=== PATIENT | female | born 1975 | race Caucasian/White ===

== ENCOUNTER 2017-08-28 00:39 | Emergency (ER) | payer OTHER ==
[2017-08-28] MEDS ORDERED: ASPIRIN 81 MG CHEWABLE TABLET ONE (00:56)
[2017-08-28] MEDS ORDERED: FENTANYL CITR 100 MCG/2 ML ONE (00:57)
[2017-08-28] MEDS ORDERED: PANTOPRAZOLE 40 MG INJ ONE (00:58)
[2017-08-28 01:12] LABS: Absolute Lymphocytes (CBC) 2.5 K/uL (0.7-4.9); Absolute Monocytes 0.5 K/uL (0.1-1.3); Absolute Neutrophil 3.3 K/uL (1.8-8.0); Basophils % 0.8 % (0-1.3); Eosinophils % 2.5 % (0-4.4); Hematocrit 34.3 % (36.0-45.0); Lymphocytes % 38.5 % (15.3-44.8); MCH 29.9 pg (27.0-35.0); MCV 90.5 fL (80-100); MPV 7.2 fL (7.6-11.3); Monocytes % 7.6 % (3.3-12.3); RBC Red Blood Cell Count 3.79 M/uL (3.86-4.86)
[2017-08-28 01:17] LABS: Protime INR 0.99
[2017-08-28 01:24] LABS: Bicarbonate 28 mEq/L (21-31); Glucose Level 118 mg/dL (65-120); Potassium 3.5 mEq/L (3.6-5.0); Sodium Level 136 mEq/L (135-145)
[2017-08-28 01:30] LABS: ALT/SGPT 11 IU/L (10-60); AST/SGOT 16 IU/L (10-42); Albumin 3.8 g/dL (3.2-5.5); Alkaline Phosphatase 49 IU/L (42-121); BUN Blood Urea Nitrogen 13 mg/dL (6-20); Bilirubin Direct < 0.1 mg/dL (0-0.2); Bilirubin Total 0.4 mg/dL (0.3-1.2); Creatine Phosphokinase 118 IU/L (22-269); Magnesium 1.8 mg/dL (1.8-2.5); Protein, Total 7.4 g/dL (6.0-8.3)
[2017-08-28 01:33] LABS: CKMB Creatine Kinase MB 1.4 ng/ml (0.3-4.0)
[2017-08-28] MEDS ORDERED: LIDOCAINE VISCOUS 2% SOLN 15 ML UDC ONE (02:50)
[2017-08-28] MEDS ORDERED: MAGNE/ALUM HYDROXD 30 ML UCUP ONE (02:50)
[2017-08-28] MEDS ORDERED: KETOROLAC 30 MG/ML INJ ONE (02:51)
--- NOTE | 2017-08-28 04:31 | EDPHYS ---
Physician Documentation [facility] Name: Ama Stoddard Age: 42 yrs Sex: Female : 1975 Arrival Date: 08/28/2017 Time: 00:42 Bed 6 Private MD: Pradeep Bridges H ED Physician Florencio Low HPI: 08/28 00:45 This 42 yrs old Female presents to ER via Ambulatory with complaints of Chest snw Pain. 02:51 The patient or guardian reports chest pain that is located primarily in the anterior snw chest wall, left. Onset: suddenly, last night, 1800. The pain radiates to left back. Associated signs and symptoms: The patient has no apparent associated signs or symptoms. The chest pain is described as sharp, squeezing. Duration: The patient or guardian reports a single episode, that is still ongoing. Modifying factors: The symptoms are alleviated by nothing. Severity of pain: At its worst the pain was moderate. The patient has not experienced similar symptoms in the past. Historical: - Allergies: 00:52 No Known Allergies; fc - Home Meds: 00:52 omeprazole 40 mg Oral cpDR 1 cap once daily [Active]; fc - PMHx: 00:52 GERD; fc - PSHx: 00:52 Tubal ligation; Cholecystectomy; fc - Immunization history:: Last tetanus immunization: up to date. - Social history:: Smoking status: Patient/guardian denies using tobacco. ROS: 02:51 Constitutional: Negative for fever, chills, and weight loss, Eyes: Negative for injury, snw pain, redness, and discharge, ENT: Negative for injury, pain, and discharge, Neck: Negative for injury, pain, and swelling, Respiratory: Negative for shortness of breath, cough, wheezing, and pleuritic chest pain, Abdomen/GI: Negative for abdominal pain, nausea, vomiting, diarrhea, and constipation, Back: Negative for injury and pain, : Negative for injury, bleeding, discharge, and swelling, MS/Extremity: Negative for injury and deformity, Skin: Negative for injury, rash, and discoloration, Neuro: Negative for headache, weakness, numbness, tingling, and seizure. 02:51 Cardiovascular: Positive for chest pain, of the anterior aspect of left upper chest and left breast. Exam: 02:51 Constitutional: This is a well developed, well nourished patient who is awake, alert, snw and in no acute distress. Head/Face: Normocephalic, atraumatic. Eyes: Pupils equal round and reactive to light, extra-ocular motions intact. Lids and lashes normal. Conjunctiva and sclera are non-icteric and not injected. Cornea within normal limits. Periorbital areas with no swelling, redness, or edema. ENT: Nares patent. No nasal discharge, no septal abnormalities noted. Tympanic membranes are normal and external auditory canals are clear. Oropharynx with no redness, swelling, or masses, exudates, or evidence of obstruction, uvula midline. Mucous membranes moist. Neck: Trachea midline, no thyromegaly or masses palpated, and no cervical lymphadenopathy. Supple, full range of motion without nuchal rigidity, or vertebral point tenderness. No Meningismus. Chest/axilla: Normal chest wall appearance and motion. Nontender with no deformity. No lesions are appreciated. Cardiovascular: Regular rate and rhythm with a normal S1 and S2. No gallops, murmurs, or rubs. Normal PMI, no JVD. No pulse deficits. Respiratory: Lungs have equal breath sounds bilaterally, clear to auscultation and percussion. No rales, rhonchi or wheezes noted. No increased work of breathing, no retractions or nasal flaring. Abdomen/GI: Soft, non-tender, with normal bowel sounds. No distension or tympany. No guarding or rebound. No evidence of tenderness throughout. Back: No spinal tenderness. No costovertebral tenderness. Full range of motion. Skin: Warm, dry with normal turgor. Normal color with no rashes, no lesions, and no evidence of cellulitis. MS/ Extremity: Pulses equal, no cyanosis. Neurovascular intact. Full, normal range of motion. Neuro: Awake and alert, GCS 15, oriented to person, place, time, and situation. Cranial nerves II-XII grossly intact. Motor strength 5/5 in all extremities. Sensory grossly intact. Cerebellar exam normal. Normal gait. Vital Signs: 00:40 BP 124 / 90; Pulse 96; Resp 18; Temp 97.5(O); Pulse Ox 99% on R/A; Weight 86.18 kg (R); fc Height 5 ft. 8 in. (172.72 cm) (R); Pain 6/10; 01:30 BP 112 / 89; Pulse 70; Resp 18; Pulse Ox 98% on R/A; ea 02:00 BP 110 / 79; Pulse 66; Resp 18; Pulse Ox 100% on R/A; ea 02:50 BP 112 / 73; Pulse 77; Resp 18; Pulse Ox 98% ; mg2 04:05 BP 122 / 74; Pulse 71; Resp 18; Pulse Ox 100% ; mg2 04:46 BP 110 / 79; Pulse 65; Resp 18; Pulse Ox 100% on R/A; lp1 00:40 Body Mass Index 28.89 (86.18 kg, 172.72 cm) fc MDM: 00:50 Patient medically screened. snw 03:17 The patient was given aspirin in the Emergency Department. JOSH Risk Score: 1 - Recent snw [<24hrs] Severe Angina. Data reviewed: vital signs, nurses notes. Data interpreted: Pulse oximetry: on room air is 98 %. Interpretation: normal. Counseling: I had a detailed discussion with the patient and/or guardian regarding: the historical points, exam findings, and any diagnostic results supporting the discharge/admit diagnosis, lab results, radiology results. 08/28 00:51 Order name: Basic Metabolic Panel; Complete Time: :33 08/28 00:51 Order name: BNP; Complete Time: :33 08/28 00:51 Order name: CBC with Diff; Complete Time: 01:21 08/28 00:51 Order name: Ckmb; Complete Time: 01:33 08/28 00:51 Order name: CPK; Complete Time: 01:33 08/28 00:51 Order name: LFT's; Complete Time: 01:33 08/28 00:51 Order name: Magnesium; Complete Time: 01:33 08/28 00:51 Order name: PT-INR; Complete Time: 01:w 08/28 00:51 Order name: Ptt, Activated; Complete Time: 01:21 08/28 00:51 Order name: Troponin (emerg Dept Use Only); Complete Time: 01:32 w 08/28 00:51 Order name: XRAY Chest (1 view) snw 08/28 00:58 Order name: CT Chest For PE Angio 08/28 03:16 Order name: Troponin (emerg Dept Use Only); Complete Time: 04:04 08/28 00:51 Order name: EKG; Complete Time: 00:52 08/28 00:51 Order name: Cardiac monitoring; Complete Time: 01:09 08/28 00:51 Order name: EKG - Nurse/Tech; Complete Time: 01:09 08/28 00:51 Order name: IV Saline Lock; Complete Time: 01:09 08/28 00:51 Order name: Labs collected and sent; Complete Time: 01:09 08/28 00:51 Order name: O2 Per Protocol; Complete Time: 01:09 08/28 00:51 Order name: O2 Sat Monitoring; Complete Time: 01:09 08/28 03:42 Order name: EKG; Complete Time: 03:42 08/28 03:42 Order name: EKG - Nurse/Tech; Complete Time: 03:59 snw Administered Medications: 01:04 Drug: ProTONIX 40 mg Route: IVP; Site: right antecubital; mg2 01:30 Follow up: Response: No adverse reaction ea 01:04 Drug: Aspirin Chewable Tablet 324 mg Route: PO; mg2 01:30 Follow up: Response: No adverse reaction ea 01:04 Drug: fentaNYL (PF) 25 mcg Route: IVP; Site: right antecubital; mg2 01:30 Follow up: Response: No adverse reaction; Pain is decreased ea 02:55 Drug: TORadol 30 mg Route: IVP; Site: right antecubital; ea 03:59 Follow up: Response: No adverse reaction; Pain is decreased mg2 02:55 Drug: GI Cocktail without - (Maalox Suspension 30 ml, Lidocaine Liquid 2 % 15 ea ml) Route: PO; 03:59 Follow up: Response: No adverse reaction mg2 Disposition: 08/28/17 04:30 Discharged to Home. Impression: Chest pain, unspecified. - Condition is Stable. - Discharge Instructions: Nonspecific Chest Pain, Aspirin and Your Heart. - Prescriptions for Tylenol- Codeine #3 300-30 mg Oral Tablet - take 2 tablets by ORAL route every 6 hours As needed; 16 tablet. orphenadrine citrate 100 mg Oral Tablet Sustained Release - take 1 tablet by ORAL route 2 times per day As needed; 20 tablet. - Work release form, Medication Reconciliation Form, Thank You Letter, Antibiotic Education, Prescription Opioid Use form. - Follow up: Pradeep Bridges; When: Tomorrow; Reason: Recheck today's complaints, Continuance of care, Re-evaluation by your physician. Follow up: Emergency Department; When: As needed; Reason: Worsening of condition. Addendum: 09/14/2017 07:03 Co-signature as Attending Physician, Florencio Low MD I agree with the assessment and t w4 plan of care. Signatures: Dispatcher [employer] EDMS Tonia Lomas, SHIMA-C REHABILITATION CASEWORKER-Csnw Sherine Ramsey, RN RN Nichole Lucio RN RN lp1 Sydni Carrasco RN RN Florencio Dang MD MD tw4 Reyes Palmer RN JOHN mg2 Corrections: (The following items were deleted from the chart) 08/28 02:50 02:49 Onset: The symptoms/episode began/occurred snw snw 02:50 02:49 This 42 yrs old Female presents to ER via Ambulatory with complaints of snw Chest Pain. snw 04:48 04:30 08/28/2017 04:30 Discharged to Home. Impression: Chest pain, unspecified. lp1 Condition is Stable. Discharge Instructions: Nonspecific Chest Pain, Aspirin and Your Heart. Prescriptions for Tylenol-Codeine #3 300-30 mg Oral Tablet - take 2 tablets by ORAL route every 6 hours As needed; 16 tablet, orphenadrine citrate 100 mg Oral Tablet Sustained Release - take 1 tablet by ORAL route 2 times per day As needed; 20 tablet. and Forms are Medication Reconciliation Form, Thank You Letter, Antibiotic Education, Prescription Opioid Use. Follow up: Pradeep Bridges; When: Tomorrow; Reason: Recheck today's complaints, Continuance of care, Re-evaluation by your physician. Follow up: Emergency Department; When: As needed; Reason: Worsening of condition. snw
--- NOTE | 2017-08-28 04:31 | ER ---
Nurse's Notes [facility] Name: Ama Stoddard Age: 42 yrs Sex: Female : 1975 Arrival Date: 08/28/2017 Time: 00:42 Bed 6 Private MD: Pradeep Bridges H Diagnosis: Chest pain, unspecified Presentation: 08/28 00:40 Presenting complaint: Patient states: that at 1800 she started to have chest pain that fc radiates to her back and jaw. Also having nausea and shortness of breath. Transition of care: patient was not received from another setting of care. Onset of symptoms was August 27, 2017 at 18:00. Initial Sepsis Screen: Does the patient meet any 2 criteria? HR > 90 bpm. Yes Does the patient have a suspected source of infection? No. Patient's initial sepsis screen is negative. Care prior to arrival: Medication(s) given: Tums and Maalox. 00:40 Method Of Arrival: Ambulatory fc 00:40 Acuity: SOFIYA 3 fc Triage Assessment: 01:01 General: Appears uncomfortable, Behavior is calm, cooperative, appropriate for age. ea Pain: Complains of pain in mid-sternal area. EENT: No signs and/or symptoms were reported regarding the EENT system. Neuro: Level of Consciousness is awake, alert, obeys commands, Oriented to person, place, time, situation. Cardiovascular: Heart tones S1 S2 present Patient's skin is warm and dry. Respiratory: Airway is patent Respiratory effort is even, unlabored, Respiratory pattern is regular, symmetrical, Breath sounds are clear bilaterally. GI: Abdomen is non-distended, Bowel sounds present X 4 quads. : No signs and/or symptoms were reported regarding the genitourinary system. Derm: Skin is pink, warm \T\ dry. Historical: - Allergies: 00:52 No Known Allergies; fc - Home Meds: 00:52 omeprazole 40 mg Oral cpDR 1 cap once daily [Active]; fc - PMHx: 00:52 GERD; fc - PSHx: 00:52 Tubal ligation; Cholecystectomy; fc - Immunization history:: Last tetanus immunization: up to date. - Social history:: Smoking status: Patient/guardian denies using tobacco. Screenin:40 Abuse screen: Denies threats or abuse. Nutritional screening: No deficits noted. fc Tuberculosis screening: No symptoms or risk factors identified. Fall Risk None identified. Assessment: 01:05 Reassessment: see triage assessment. ea 02:16 Reassessment: Patient and/or family updated on plan of care and expected duration. Pain ea level reassessed. Patient is alert, oriented x 3, equal unlabored respirations, skin warm/dry/pink. 02:57 Reassessment: Patient and/or family updated on plan of care and expected duration. Pain ea level reassessed. 03:01 Reassessment: Patient and/or family updated on plan of care and expected duration. Pain ea level reassessed. Patient is alert, oriented x 3, equal unlabored respirations, skin warm/dry/pink. 04:40 Reassessment: Patient and/or family updated on plan of care and expected duration. Pain lp1 level reassessed. Patient is alert, oriented x 3, equal unlabored respirations, skin warm/dry/pink. Discharge instructions give to patient, verbalized understanding of instruction. Patient states feeling better. Patient states symptoms have improved. Vital Signs: 00:40 BP 124 / 90; Pulse 96; Resp 18; Temp 97.5(O); Pulse Ox 99% on R/A; Weight 86.18 kg (R); fc Height 5 ft. 8 in. (172.72 cm) (R); Pain 6/10; 01:30 BP 112 / 89; Pulse 70; Resp 18; Pulse Ox 98% on R/A; ea 02:00 BP 110 / 79; Pulse 66; Resp 18; Pulse Ox 100% on R/A; ea 02:50 BP 112 / 73; Pulse 77; Resp 18; Pulse Ox 98% ; mg2 04:05 BP 122 / 74; Pulse 71; Resp 18; Pulse Ox 100% ; mg2 04:46 BP 110 / 79; Pulse 65; Resp 18; Pulse Ox 100% on R/A; lp1 00:40 Body Mass Index 28.89 (86.18 kg, 172.72 cm) ED Course: 00:40 Arm band placed on Patient placed in an exam room, on a stretcher, on cardiac technologist, fc on pulse oximetry. 00:40 Patient has correct armband on for positive identification. Placed in gown. Bed in low fc position. Call light in reach. upper doubler on. Pulse ox on. NIBP on. 00:40 No provider procedures requiring assistance completed. fc 00:42 Patient arrived in ED. es 00:42 Pradeep Bridges DO is Private Physician. es 00:50 Triage completed. fc 00:50 Tonia Lomas FNP-C [facility]. snw 00:50 Florencio Low MD is Attending Physician. snw 00:58 Sydni Carrasco RN is Primary Nurse. ea 01:03 Inserted saline lock: 20 gauge in right antecubital area, using aseptic technique. ea Blood collected. Patient maintains SpO2 saturation greater than 95% on room air. 01:09 X-ray completed. Portable x-ray completed in exam room. Patient tolerated procedure kw well. 01:10 XRAY Chest (1 view) In Process Unspecified. EDMS 02:08 CT Chest For PE Angio In Process Unspecified. EDMS 04:30 Pradeep Bridges DO is Referral Physician. snw 04:40 IV discontinued, intact, bleeding controlled, No redness/swelling at site. Pressure lp1 dressing applied. Administered Medications: 01:04 Drug: ProTONIX 40 mg Route: IVP; Site: right antecubital; mg2 01:30 Follow up: Response: No adverse reaction ea 01:04 Drug: Aspirin Chewable Tablet 324 mg Route: PO; mg2 01:30 Follow up: Response: No adverse reaction ea 01:04 Drug: fentaNYL (PF) 25 mcg Route: IVP; Site: right antecubital; mg2 01:30 Follow up: Response: No adverse reaction; Pain is decreased ea 02:55 Drug: TORadol 30 mg Route: IVP; Site: right antecubital; ea 03:59 Follow up: Response: No adverse reaction; Pain is decreased mg2 02:55 Drug: GI Cocktail without - (Maalox Suspension 30 ml, Lidocaine Liquid 2 % 15 ea ml) Route: PO; 03:59 Follow up: Response: No adverse reaction mg2 Outcome: 04:30 Discharge ordered by . snw 04:43 Discharged to home ambulatory. lp1 04:43 Condition: improved 04:43 Discharge instructions given to patient, Instructed on discharge instructions, follow up and referral plans. medication usage, Demonstrated understanding of instructions, follow-up care, medications, Prescriptions given X 2. 04:48 Patient left the ED. lp1 Signatures: Dispatcher [employer] EDTonia Astudillo, FUNERAL DRIVER-C FUNERAL DRIVER-Csnw Yomaira Woo Felicia, RN RN Julisa Alex Laura, RN RN lp1 Sydin Carrasco RN RN Reyes Erazo RN RN mg2
[2017-08-28 04:52] VITALS: TEMP 97.5
[2017-08-28 04:57] VITALS: O2SAT 100
[2017-08-28 04:58] VITALS: BP 110/79
--- NOTE | 2017-08-28 07:46 | RAD REPORT ---
EXAM DESCRIPTION: RAD - Chest Single View - 08/28/2017 1:10 am CLINICAL HISTORY: Chest pain radiating to the back COMPARISON: None. TECHNIQUE: AP portable chest image was obtained 0104 hours . FINDINGS: Lungs are clear. Heart and vasculature are normal. No measurable pleural effusion and no p neumothorax. No gross bony abnormality seen. No acute aortic findings suspected. IMPRESSION: No acute cardiopulmonary process.
--- NOTE | 2017-08-28 08:37 | RAD REPORT ---
EXAM DESCRIPTION: CT - Chest For Pe Angio - 08/28/2017 3:38 am CLINICAL HISTORY: Chest pain radiating to the back A preliminary written report was provided at the time of the study, and the report was reviewed prio r to final dictation. COMPARISON: Chest exam same date TECHNIQUE: Dynamically enhanced 3 mm thick images of the chest were obtained during administration o f approximately 150mL Isovue 370 IV contrast. Coronal and oblique reconstruction images were generate d and reviewed. Exam utilizes a protocol to evaluate the pulmonary arterial tree. All CT scans are performed using dose optimization technique as appropriate and may include automated exposure control or mA/KV adjustment according to patient size. FINDINGS: No pulmonary emboli are identified. Exam is limited somewhat in the far peripheral branche s of each lung base due to motion. Likelihood of embolic disease in this region is felt to be low. The aorta as imaged shows no acute or suspicious finding. No pericardial thickening or effusion. No infiltrate or mass in the lung parenchyma. No pleural effusion or pleural thickening. No mediastinal or hilar suspicious masses. No chest wall masses or abnormal axillary lymphadenopathy. Bilateral breast implants are in place. IMPRESSION: No pulmonary emboli identified. No other significant or suspicious findings.
--- NOTE | 2017-08-28 08:44 | EKG ---
Test Date: 2017-08-28 Test Time: 03:53:52 Lead Athlete: TONY MEASUREMENT RESULTS: Intervals: Rate: 64 ND: 178 QRSD: 82 QT: 410 QTc: 422 [place]: P: 34 ND: 178 QRS: 49 T: 24 INTERPRETIVE STATEMENTS: Normal sinus rhythm Cannot rule out Anterior infarct, age undetermined Abnormal ECG Compared to ECG 08/28/2017 00:49:59 No significant changes Electronically Signed On 08-28-17 08:43:36 CDT by Curry Reilly
--- NOTE | 2017-08-28 08:45 | EKG ---
Test Date: 2017-08-28 Test Time: 00:49:59 Traffic Chief: LITZY MEASUREMENT RESULTS: Intervals: Rate: 74 MA: 168 QRSD: 82 QT: 386 QTc: 428 [place]: P: 40 MA: 168 QRS: 28 T: 35 INTERPRETIVE STATEMENTS: Normal sinus rhythm Cannot rule out Anterior infarct, age undetermined Abnormal ECG No previous ECG available for comparison Electronically Signed On 08-28-17 08:43:41 CDT by Curry Reilly
== END 2017-08-28 04:48 | disposition home or self-care (01) ==
LOC: ER 00:39
DX: R07.9 Chest pain, unspecified (principal); K21.9 Gastro-esophageal reflux disease without esophagitis
CPT/HCPCS: 36415; 71045; 71275; 80048; 80076; 82550; 82553; 83735; 83880; 84484; 85025; 85610; 85730; 93005; 96374; 96375; 99285; C9113; J3010; Q9967

== ENCOUNTER 2019-04-01 09:15 | Day surgery (SDC) | payer OTHER ==
[2019-03-27 15:53] LABS: Absolute Lymphocytes (CBC) 2.8 K/uL (0.7-4.9); Basophils % 0.8 % (0-1.3); Hematocrit 33.2 % (36.0-45.0); Lymphocytes % 43.6 % (15.3-44.8); MPV 7.1 fL (7.6-11.3); RBC Red Blood Cell Count 3.75 M/uL (3.86-4.86)
[2019-03-27 16:12] LABS: Urine Appearance CLEAR; Urine Bilirubin NEGATIVE (NEG); Urine Blood NEGATIVE (NEG); Urine Color YELLOW; Urine Glucose NEGATIVE (NEG); Urine Protein NEGATIVE (NEG); Urine Specific Gravity 1.015 (1.005-1.030); Urine Urobilinogen 0.2 mg/dL (0.2-1.0); Urine pH 5.5 (5.0-7.0)
[2019-03-27 16:18] LABS: Urine Microscopic Reflex NO UMIC
[2019-04-01 09:38] LABS: Specific Gravity 1.025 (1.005-1.030)
[2019-04-01] MEDS ORDERED: VASOPRESSIN 20 UNIT/ML VIAL ONE (09:55)
[2019-04-01] MEDS ORDERED: NA CHLORIDE 0.9% 50 ML ONE (09:55)
[2019-04-01] MEDS ORDERED: NS 0.9% VIAL 10 ML ONE (09:55)
[2019-04-01] MEDS ORDERED: CEFAZOLIN SODIUM 1 GM/VIAL ONE (09:56)
[2019-04-01] MEDS ORDERED: CEFAZOLIN/SWI 2gm 2 GM/20 ML SYR ONE (09:57)
[2019-04-01] MEDS ORDERED: CEFAZOLIN/SWI 1gm 1 GM/10 ML SYR ONE (09:57)
[2019-04-01] MEDS ORDERED: Ringers Lactate 1,000 ML IV ONE ×2 (09:57→13:59)
[2019-04-01] MEDS ORDERED: LIDOCAINE 2% MPF 5 ML VIAL ONE (10:00)
[2019-04-01] MEDS ORDERED: FENTANYL CITR 250 MCG/5 ML ONE (10:00)
[2019-04-01] MEDS ORDERED: MIDAZOLAM HCL 2 MG/2 ML INJ ONE (10:00)
[2019-04-01] MEDS ORDERED: propofoL 200 MG/20 ML VIAL IV ONE (10:00)
[2019-04-01] MEDS ORDERED: ROCURONIUM 50 MG/5 ML VIAL IV ONE (10:01)
[2019-04-01] MEDS ORDERED: ONDANSETRON 4 MG/2 ML VIAL ONE ×3 (10:01→13:59)
[2019-04-01] MEDS: HYDROMORPHONE HCL 1 MG/ML INJ ONE ×2 (12:02→12:10)
[2019-04-01] MEDS ORDERED: HYDROCODONE/APAP 5/325 MG TAB ONE ×2 (12:47→13:11)
[2019-04-01] MEDS ORDERED: HYDROCODONE/APAP 5/325 MG TAB PO ONE ×2 (12:48→13:00)
[2019-04-01 12:53] VITALS: TEMP 96.7; O2SAT 99
[2019-04-01] MEDS ORDERED: ONDANSETRON 4 MG/2 ML VIAL IV ONE (14:05)
[2019-04-01] MEDS ORDERED: SCOPOLAMINE HYDROBROMIDE PATCH TD ONE ×2 (14:33→14:40)
[2019-04-01 15:16] VITALS: BP 128/72
--- NOTE | 2019-04-01 21:52 | OP ---
Date of Procedure: 04/01/2019 Surgeon: Juanis Baer MD Preoperative Diagnoses: Stress urinary incontinence and uterovaginal prolapse. Postoperative Diagnoses: Stress urinary incontinence, uterovaginal prolapse, and urethrocele. Procedures Performed: Mid urethral sling (TVT-O), cystoscopy, and urethrocele repair. Anesthesia: General. Specimens: No specimens. Complications: No complications. Drains: Carrillo catheter. Findings: Patient's POP-Q 0, +1, -3, 5, moderate, 8, -2, -2, -3. Indications: Patient is a 43-year-old with severe stress urinary incontinence. She was complaining of no results with Kegel exercises. Discussed that she had positive urethral hypermobility and posit babs cough stress test. Given her prolapse as well, discussed about doing an apical suspension of the vagina followed by the sling procedure. Discussed about hysterectomy, salpingectomy, uterosacral li gament suspension with mid urethral sling. Also discussed about the options of physical therapy, obs ervation. Benefits and risks of all the procedures were reviewed. Patient was symptomatic mostly fr om her stress urinary incontinence and wanted her stress urinary incontinence alone repaired at this time. So, discussed about the risks of bleeding, infection, injury to the ureters and bladder, recur rent bladder infections, urinary retention, need for intermittent self catheterization, groin pain, n eed for sling division as the sling was too tight. All these were reviewed with the patient. She wa s consented. She was brought to the OR. Description Of Operation: 3 g of Ancef was given per her weight in ACOG guidelines. Placed in a sup ine fashion. General anesthesia given, placed in a dorsal lithotomy position using Wander stirrups. Vulva, vagina, and perineum were prepped and draped in a sterile fashion. Carrillo was placed to drain the bladder and retracted superiorly. Then, mid urethral area was picked up with the help of Allis c lamps. Then, dilute vasopressin 20 units mixed with 20 cc of normal saline, 15 cc was injected in th e mid urethral area on the sides. A 15 blade was used to make a 1 cm incision in the mid urethral ar ea. Slightly more towards the proximal, then the distal ends, subepithelial tissues were entered. T here was no connective tissue here. Also appeared to have a urethrocele while doing the dissection. The dissection was done such that the urethra and the bladder were away from the vaginal e pithelium at a 45-degree angle to the horizontal and vertical planes towards the ipsilateral shoulder hugging the inferior pubic ramus. An opening was made to enter the obturator space. Once the obtur ator membrane was perforated, this track was opened up. No perforation through the lateral wall. Si milar dissection performed on the left side as well as this is an easier dissection on the left than on the right. Once this was performed, then I realized that there was no connective tissue fascia or remnants of the endopelvic fascia here in the suburethral area. The pocket that I made definitely w ould allow the sling to migrate towards the proximal part of the urethra and UVJ. So, it was imperat babs that I brought the connective tissue that was present more proximally towards the distal part in a transverse fashion in order for me to recreate a pocket where the sling could be lodged and could b e left in place without sliding. So, decision was to put the sling in first and then create the pock et after properly positioning the sling under the urethra. So, the TVT-O was opened up, wing guides were placed first on the left side. Ayo was passed into the obturator space. Then, the wing guide removed and passed through 2 cm lateral to the groin fold and a centimeter above the level of the ho rizontal line dropped at the level of the external urethral meatus. The spike was retrieved here. T he skin incision about 3 mm was made with a scalpel. Plastic dilator was pulled out, cut out. Plast ic sheath was held with a Meghna and a similar pass taken on the opposite side. Once both sides were held with Kellys using Metzenbaum scissors, I position the sling underneath the mid urethra and the p lastic sheaths were pulled out. Once this was left in place, I felt that the sling had slit down as anticipated. So, Allis clamps were placed in the proximal part of the incision and the sling was mov ed distally towards the mid urethral area. Once it was positioned in the place that I wanted to stay , then a pocket was created on the left, then on the right side with interrupted 3-0 Vicryl sutures c onnecting the detached connective tissue from the proximal to distal ends, 2 sutures on each side, 3- 0 Vicryl was placed. Then, once the pocket was created, then the vaginal epithelium was closed with interrupted sutures on the top and the bottom to close the incisions so that when the center was clos ed, it would stay in place right on top of the mid urethral area. This was closed in a continuous ru nning locked fashion. Once this was done, a slight amount of vaginal epithelium was trimmed for me t o pull this back. Once urethrocele was repaired, then her point AA was -1 and her point BA was also at -1. The Carrillo was removed, cystoscopy was performed with 30-degree lens normal saline and no evid ence of any foreign body in the bladder. Scope was removed. Bladder was drained. Carrillo was replace d. Instrument, needle, and sponge counts were done and were correct at the end of the case. Both in cisions in the groins were closed with Dermabond. Instrument, needle, and sponge counts were done an d recovered the patient in the OR from anesthesia and took her to the PACU in stable condition. Plan is to conduct voiding trials for this patient 2 hours postop and then we can let her be discharg ed home today without a catheter if she passed her voiding trial. [place] was given, instructions for postop problems have been handed to the patient and reviewed with the patient preop. She has a 1 wee k follow up with me. ELIZABETH/JASMEET Voice ID: [id number] Report ID: [id number]
== END 2019-04-01 14:50 | disposition home or self-care (01) ==
LOC: OR 09:15
PROVIDERS: ATTEND Obstetrics & Gynecology
PROC: 0TSD0ZZ Reposition Urethra, Open Approach (ICD-10-PCS; principal; 2019-04-01 10:30)
PROC: 0JQC0ZZ Repair Pelvic Region Subcutaneous Tissue and Fascia, Open Approach (ICD-10-PCS; 2019-04-01 10:30)
DX: N39.3 Stress incontinence (female) (male) (principal); N81.4 Uterovaginal prolapse, unspecified; N81.0 Urethrocele; K59.00 Constipation, unspecified; D50.0 Iron deficiency anemia secondary to blood loss (chronic)
CPT/HCPCS: 85025; 36415; 86900; 86850; 81025; 86901; 81003; 57288; 57230; J2704; J2250; J3010; J1170; J0690 ×3; J7120 ×2; J2405 ×4

== ENCOUNTER 2019-04-25 22:51 | Emergency (ER) | payer OTHER ==
[2019-04-25] MEDS ORDERED: HYDROCODONE/CHLORPHEN 5 ML/OSYR ONE (23:26)
--- NOTE | 2019-04-26 00:11 | EDPHYS ---
Physician Documentation [facility] Name: Ama Stoddard Age: 43 yrs Sex: Female : 1975 Arrival Date: 04/25/2019 Time: 22:56 Bed 24 Private MD: ED Physician Donald Crowder HPI: 04/25 23:16 This 43 yrs old Female presents to ER via Ambulatory with complaints of Cough.pm1 23:16 The patient or guardian reports cough. pm1 23:16 Onset: The symptoms/episode began/occurred 3 week(s) ago. Severity of symptoms: in the pm1 emergency department the symptoms are actually worse. Modifying factors: The symptoms are alleviated by nothing, the symptoms are aggravated by nothing. Associated signs and symptoms: Pertinent positives: sore throat, sinus pain and pressure with post nasal drainage, Pertinent negatives: chest pain, ear ache, fever, shortness of breath. The patient has been recently seen by a physician: with different complaint(s), had bladder suspension surgery 3 weeks ago and after surgery had a scratchy throat that lead to a cough. Has had sinus pain and pressure with post nasal drainage. She has been taking over the counter antihistamines without improvement and took two doses of left over amoxicillin. She is concerned that he coughing will cause issues with her recent surgery. 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 - Social history:: Smoking status: Patient/guardian denies using tobacco, never smoked. - Ebola Screening: : No symptoms or risks identified at this time. ROS: 23:26 Constitutional: Negative for fever, chills, and weight loss, Eyes: Negative for injury, pm1 pain, redness, and discharge, Neck: Negative for injury, pain, and swelling, Cardiovascular: Negative for chest pain, palpitations, and edema, Abdomen/GI: Negative for abdominal pain, nausea, vomiting, diarrhea, and constipation. 23:26 Back: Negative for injury and pain. 23:26 MS/Extremity: Negative for injury and deformity, Skin: Negative for injury, rash, and discoloration. 23:26 Neuro: Negative for headache, weakness, numbness, tingling, and seizure. 23:26 ENT: Positive for sinus congestion, sinus pain, sore throat, Negative for drainage from ear(s), ear pain, difficulty swallowing, difficulty handling secretions, hoarseness. 23:26 Respiratory: Positive for cough, Negative for shortness of breath, sputum production, wheezing. Exam: 23:26 Constitutional: This is a well developed, well nourished patient who is awake, alert, pm1 and in no acute distress. 23:26 Eyes: Pupils equal round and reactive to light, extra-ocular motions intact. Lids and lashes normal. Conjunctiva and sclera are non-icteric and not injected. Cornea within normal limits. Periorbital areas with no swelling, redness, or edema. ENT: Nares patent. No nasal discharge, no septal abnormalities noted. Tympanic membranes are normal and external auditory canals are clear. Oropharynx with no redness, swelling, or masses, exudates, or evidence of obstruction, uvula midline. Mucous membranes moist. Neck: Trachea midline, no thyromegaly or masses palpated, and no cervical lymphadenopathy. Supple, full range of motion without nuchal rigidity, or vertebral point tenderness. No Meningismus. Chest/axilla: Normal chest wall appearance and motion. Nontender with no deformity. No lesions are appreciated. Cardiovascular: Regular rate and rhythm with a normal S1 and S2. No gallops, murmurs, or rubs. Normal PMI, no JVD. No pulse deficits. Respiratory: Lungs have equal breath sounds bilaterally, clear to auscultation and percussion. No rales, rhonchi or wheezes noted. No increased work of breathing, no retractions or nasal flaring. Back: No spinal tenderness. No costovertebral tenderness. Full range of motion. Skin: Warm, dry with normal turgor. Normal color with no rashes, no lesions, and no evidence of cellulitis. MS/ Extremity: Pulses equal, no cyanosis. Neurovascular intact. Full, normal range of motion. 23:26 Head/face: Sinus tenderness, that is moderate, is located over the right frontal sinus and left frontal sinus. 23:26 Neuro: Orientation: is normal, Motor: is normal, moves all fours, Gait: is steady, at a normal pace, without difficulty. Vital Signs: 23:15 Temp 98.7(O); Weight 104.33 kg; Height 5 ft. 9 in. (175.26 cm); rv 23:21 BP 99 / 61; Pulse 83; Resp 18; Pulse Ox 100% on R/A; jp3 23:36 BP 104 / 56; Pulse 83; Resp 18; Pulse Ox 100% on R/A; jp3 04/26 00:40 BP 103 / 55; Pulse 80; Resp 16; Temp 98.6; Pulse Ox 100% ; Pain 2/10; cr4 04/25 23:15 Body Mass Index 33.96 (104.33 kg, 175.26 cm) rv MDM: 04/25 23:05 Patient medically screened. pm1 23:16 ED course: Patient does not want a chest x-ray. Feels that the coughing is a result of pm1 sinus drainage. 04/26 00:05 Data reviewed: vital signs. Data interpreted: Pulse oximetry: on room air is 100 %. pm1 Interpretation: normal. 00:08 Counseling: I had a detailed discussion with the patient and/or guardian regarding: the pm1 historical points, exam findings, and any diagnostic results supporting the discharge/admit diagnosis, lab results, the need for outpatient follow up, to return to the emergency department if symptoms worsen or persist or if there are any questions or concerns that arise at home, . 00:11 ED course: Patient with symptoms of sinusitis greater than 10 days, therefore will pm1 treat with abx and steroids. 04/25 23:16 Order name: Flu; Complete Time: 00:04 pm1 04/25 23:16 Order name: Strep; Complete Time: 23:49 pm1 04/25 23:49 Order name: Throat Culture EDMS Administered Medications: 04/25 23:13 Drug: Tussionex Pennkinetic ER 5 ml Route: PO; cr4 04/26 00:10 Follow up: Response: No adverse reaction cr4 00:40 Drug: Rocephin (cefTRIAXone) 1 grams Route: IM; Site: left gluteus; cr4 00:45 Follow up: Response: No adverse reaction cr4 00:40 Drug: Decadron 10 mg {Note: oaky to giv po per Dawit.} Route: IM; Site: Other; cr4 00:45 Follow up: Response: No adverse reaction cr4 Disposition: 04:19 Co-signature as Attending Physician, Donald Crowder MD I agree with the assessment and kdr plan of care. Disposition: 04/26/19 00:09 Discharged to Home. Impression: Acute sinusitis, Cough. - Condition is Stable. - Discharge Instructions: Sinusitis, Adult, Cough, Adult. - Prescriptions for Amoxicillin 500 mg Oral Capsule - take 1 capsule by ORAL route every 8 hours for 10 days; 30 tablet. Medrol (Grey) 4 mg Oral Tablets, Dose Pack - take 1 tablet by ORAL route as directed - follow package instructions; 1 packet. Guaifenesin AC 10- 100 mg/5 mL Oral Liquid - take 10 milliliter by ORAL route every 4 hours As needed; 240 milliliter. - Medication Reconciliation Form, Thank You Letter, Antibiotic Education, Prescription Opioid Use form. - Follow up: Emergency Department; When: As needed; Reason: Worsening of condition. Follow up: Private Physician; When: 2 - 3 days; Reason: Recheck today's complaints, Continuance of care, Re-evaluation by your physician. - Problem is new. - Symptoms have improved. Signatures: Dispatcher [employer] EDMS Donald Crowder MD MD [facility] Comfort Fernández RN RN cr4 Dawti Rodriguez, JOSELO SEATER GRINDER pm1 Keyur Rodriguez RN RN rv Corrections: (The following items were deleted from the chart) 00:46 00:09 04/26/2019 00:09 Discharged to Home. Impression: Acute sinusitis; Cough. cr4 Condition is Stable. Forms are Medication Reconciliation Form, Thank You Letter, Antibiotic Education, Prescription Opioid Use. Follow up: Emergency Department; When: As needed; Reason: Worsening of condition. Follow up: Private Physician; When: 2 - 3 days; Reason: Recheck today's complaints, Continuance of care, Re-evaluation by your physician. Problem is new. Symptoms have improved. pm1
--- NOTE | 2019-04-26 00:11 | ER ---
Nurse's Notes [facility] Name: Ama Stoddard Age: 43 yrs Sex: Female : 1975 Arrival Date: 04/25/2019 Time: 22:56 Bed 24 Private MD: Diagnosis: Acute sinusitis;Cough Presentation: 04/25 23:13 Presenting complaint: Patient states: after my bladder surgery three weeks ago, I rv started having soreness on my throat and I have been coughing since then. yesterday, it is a lot worse and I am worried about my surgery. And I also have a bad headache. Transition of care: patient was not received from another setting of care. Onset of symptoms was April 25, 2019 at 08:00. Risk Assessment: Do you want to hurt yourself or someone else? Patient reports no desire to harm self or others. Initial Sepsis Screen: Does the patient meet any 2 criteria? No. Patient's initial sepsis screen is negative. Does the patient have a suspected source of infection? No. Patient's initial sepsis screen is negative. Care prior to arrival: None. 23:13 Method Of Arrival: Ambulatory rv 23:13 Acuity: SOFIYA 4 rv Triage Assessment: 23:25 General: Behavior is calm, cooperative. cr4 04/26 02:20 Respiratory: Onset: The symptoms/episode began/occurred gradually, the patient has mild cr4 shortness of breath. 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 - Social history:: Smoking status: Patient/guardian denies using tobacco, never smoked. - Ebola Screening: : No symptoms or risks identified at this time. Screenin/11 00:40 Abuse screen: Denies threats or abuse. Nutritional screening: No deficits noted. cr4 Tuberculosis screening: No symptoms or risk factors identified. Fall Risk None identified. Assessment: 04/25 23:18 General: Appears in no apparent distress. Pain: Complains of pain in head. Neuro: Level rv of Consciousness is awake, alert, obeys commands, Oriented to person, place, time, situation. Cardiovascular: Patient's skin is warm and dry. Rhythm is regular. Respiratory: Airway is patent Respiratory effort is even, Breath sounds are clear bilaterally. EENT: Throat is clear. Derm: Skin is intact. 23:25 Respiratory: Reports cough that is productive, pain with cough Airway is patent cr4 Respiratory effort is even, Breath sounds are clear bilaterally. Vital Signs: 23:15 Temp 98.7(O); Weight 104.33 kg; Height 5 ft. 9 in. (175.26 cm); rv 23:21 BP 99 / 61; Pulse 83; Resp 18; Pulse Ox 100% on R/A; jp3 23:36 BP 104 / 56; Pulse 83; Resp 18; Pulse Ox 100% on R/A; jp3 04/26 00:40 BP 103 / 55; Pulse 80; Resp 16; Temp 98.6; Pulse Ox 100% ; Pain 2/10; cr4 04/25 23:15 Body Mass Index 33.96 (104.33 kg, 175.26 cm) rv ED Course: 04/25 22:56 Patient arrived in ED. jg7 22:59 Dawit Rodriguez, JOSELO is PHCP. pm1 22:59 Donald Crowder MD is Attending Physician. pm1 23:15 Triage completed. rv 23:25 Arm band placed on. cr4 23:27 Flu and/or RSV swab sent to lab. Strep swab sent to lab. Patient maintains SpO2 jp3 saturation greater than 95% on room air. 23:27 Patient has correct armband on for positive identification. Placed in gown. Bed in low jp3 position. Call light in reach. Side rails up X 1. Verbal reassurance given. Pulse ox on. NIBP on. 04/26 00:40 No provider procedures requiring assistance completed. Patient did not have IV access cr4 during this emergency room visit. Administered Medications: 04/25 23:13 Drug: Tussionex Pennkinetic ER 5 ml Route: PO; cr4 04/26 00:10 Follow up: Response: No adverse reaction cr4 00:40 Drug: Rocephin (cefTRIAXone) 1 grams Route: IM; Site: left gluteus; cr4 00:45 Follow up: Response: No adverse reaction cr4 00:40 Drug: Decadron 10 mg {Note: oaky to giv po per Dawit.} Route: IM; Site: Other; cr4 00:45 Follow up: Response: No adverse reaction cr4 Outcome: 00:09 Discharge ordered by . pm1 00:45 Discharged to home ambulatory. cr4 00:45 Condition: stable 00:45 Discharge instructions given to patient, Instructed on discharge instructions, follow up and referral plans. medication usage, Demonstrated understanding of instructions, follow-up care, medications, Prescriptions given X 3. 00:46 Patient left the ED. cr4 Signatures: Comfort Fernández RN RN cr4 Dawit Rodriguez, JOSELO SAUSAGE MACHINE OPERATOR pm1 Keyur Rodriguez RN RN Anastacio Weaver 3 Ama Trejo7
[2019-04-26] MEDS ORDERED: LIDOCAINE 2% MPF 5 ML VIAL ONE (00:32)
[2019-04-26] MEDS ORDERED: dexAMETHasone 10 MG/ML VIAL ONE (00:32)
[2019-04-26] MEDS ORDERED: CEFTRIAXONE 1000 MG/VIAL ONE (00:32)
== END 2019-04-26 00:46 | disposition home or self-care (01) ==
LOC: ER 22:51
DX: J01.90 Acute sinusitis, unspecified (principal); K21.9 Gastro-esophageal reflux disease without esophagitis
CPT/HCPCS: 87070; 87081; 87804 ×2; 96372; 99284; J1100

== ENCOUNTER 2023-11-27 08:23 | Day surgery (SDC) | payer BC ==
[2023-11-22 08:25] LABS: Absolute Basophils 0.1 K/uL (0-0.5); Absolute Eosinophils 0.1 K/uL (0-0.5); Absolute Lymphocytes (CBC) 2.3 K/uL (0.7-4.9); Absolute Monocytes 0.5 K/uL (0.1-1.3); Absolute Neutrophil 2.3 K/uL (1.8-8.0); Basophils % 1.1 % (0-1.3); Eosinophils % 2.6 % (0-4.4); Hematocrit 32.2 % (36.0-45.0); Hemoglobin 10.5 g/dL (12.0-15.0); Lymphocytes % 43.6 % (15.3-44.8); MCH 28.1 pg (27.0-35.0); MCHC 32.7 g/dL (32.0-36.0); MCV 85.9 fL (80-100); MPV 6.7 fL (7.6-11.3); Monocytes % 8.9 % (3.3-12.3); Neutrophils % 43.8 % (41.7-73.7); Platelets 310 thou/uL (152-406); RBC Red Blood Cell Count 3.75 M/uL (3.86-4.86)
[2023-11-22 08:39] LABS: Anion Gap 8.8 mEq/L (5.0-15.0); Potassium 3.8 mEq/L (3.5-5.1)
--- NOTE | 2023-11-22 13:05 | EKG ---
Test Date: 2023-11-22 Test Time: 08:16:38 Unix Developer: JANIE MEASUREMENT RESULTS: Intervals: Rate: 60 MI: 184 QRSD: 80 QT: 396 QTc: 396 [place]: P: 60 MI: 184 QRS: 56 T: 68 INTERPRETIVE STATEMENTS: Normal sinus rhythm Low voltage QRS Borderline ECG Compared to ECG 08/28/2017 03:53:52 Low QRS voltage now present Myocardial infarct finding no longer present Electronically Signed On 11-22-23 13:04:54 CDT by Lenny Diaz
[2023-11-27] MEDS: Ringers Lactate 1,000 ML IV ONE (08:23)
[2023-11-27 09:18] VITALS: TEMP 98
[2023-11-27] MEDS ORDERED: LIDOCAINE 1% MPF 5 ML VIAL ONE (10:07)
[2023-11-27] MEDS ORDERED: propofoL 200 MG/20 ML VIAL IV ONE ×2 (10:07)
[2023-11-27 11:09] VITALS: O2SAT 100
[2023-11-27 11:10] VITALS: BP 117/69
== END 2023-11-27 11:09 | disposition home or self-care (01) ==
LOC: OR 08:23
PROVIDERS: ATTEND Internal Medicine Gastroenterology
PROC: 0DB68ZX Excision of Stomach, Via Natural or Artificial Opening Endoscopic, Diagnostic (ICD-10-PCS; principal; 2023-11-27 09:30)
DX: K31.84 Gastroparesis (principal); K31.89 Other diseases of stomach and duodenum; K29.50 Unspecified chronic gastritis without bleeding; K21.9 Gastro-esophageal reflux disease without esophagitis; K30 Functional dyspepsia; R19.6 Halitosis; K59.00 Constipation, unspecified
CPT/HCPCS: 43239; 93005; 85025; 80048; 36415; 88312; 88305; J2704; J2001; J7120